=== PATIENT | male | born 1970 | race African-American/Black ===

== ENCOUNTER 2019-07-26 15:02 | Emergency (ER) | payer MEDICAID ==
[~2019-07-26] VITALS: Ht 188 cm; Wt 80.7 kg
[2019-07-26 15:10] VITALS: BP 157/71
--- NOTE | 2019-07-26 15:10 | NUR ---
ED Nurse Note: Pt brought into ED by family member for complaint of abdominal pain, nausea, vomiting since last night. Pt states pain is 8/10 and dull/constant in nature. Pt reports multiple episodes of vomiting since last night and has not been able to tolerate any oral intake. Pt denies any diarrhea. Pt is alert and oriented x4, breathing is normal and unlabored, speaking in full sentenes. Pt appears to be in mild distress secondary to pain at this time. Pt is ambulatory with steady gait. Will continue to monitor.
[2019-07-26] MEDS ORDERED: Morphine Sulfate 4mg/ml Inj (IV USE ONLY) IVP ONE (15:15)
--- NOTE | 2019-07-26 16:07 | NUR ---
ED Nurse Note: Pt sleeping comfortably at this time. Will continue to monitor.
[2019-07-26 16:11] LABS: ANION GAP 15 mmol/L (5-15); BLOOD UREA NITROGEN 20 mg/dL (7-18); CALCIUM 9.3 MG/DL (8.5-10.1); CARBON DIOXIDE 24 MMOL/L (21-32); CHLORIDE 104 MMOL/L (98-107); CREATININE 1.2 MG/DL (0.55-1.30); POTASSIUM 3.7 MMOL/L (3.5-5.1); SODIUM 143 MMOL/L (136-145)
[2019-07-26 16:12] LABS: HEMATOCRIT 43.2 % (42.0-52.0); MEAN CORPUSCULAR VOLUME 94 FL (80-99); PLATELET COUNT 230 K/UL (150-450); RED BLOOD COUNT 4.58 M/UL (4.70-6.10); RED CELL DISTRIBUTION WIDTH 12.7 % (11.6-14.8); WHITE BLOOD COUNT 12.6 K/UL (4.8-10.8)
[2019-07-26 16:15] LABS: ALANINE AMINOTRANSFERASE 30 U/L (12-78); ALBUMIN 4.4 G/DL (3.4-5.0); ALBUMIN/GLOBULIN RATIO 1.1 (1.0-2.7); ALKALINE PHOSPHATASE 86 U/L (46-116); ASPARTATE AMINO TRANSFERASE 31 U/L (15-37); BILIRUBIN,TOTAL 0.7 MG/DL (0.2-1.0)
[2019-07-26] MEDS ORDERED: ONDANSETRON ODT4 MG BC (16:55)
[2019-07-26] MEDS ORDERED: RANITIDINE HCL150 MG ORAL (16:55)
[2019-07-26 17:14] VITALS: BP 135/75
--- NOTE | 2019-07-26 17:14 | NUR ---
ER DISCHARGE NOTE: Patient is cleared to be discharged per ERMD, pt is aox4, on room air, with stable vital signs. pt was given dc and prescription instructions, pt was able to verbalize understanding, pt id band and iv site removed without complications. pt is able to ambulate with steady gait. pt took all belongings.
--- NOTE | 2019-07-26 18:36 | Emergency Room Report ---
History of Present Illness General Chief Complaint: Nausea, Vomiting, and Diarrhea Source: Patient Present Illness HPI 49-year-old male presents ED for evaluation. Complaining of abdominal pain with nausea and vomiting. Pain is epigastric, sharp, 7 out of 10, nonradiating. Started yesterday after drinking alcohol. States that he has been continuing to vomit since. States he try to use marijuana to control his nausea but it did not help. Denies drug use. Denies chest pain. Denies fevers or chills. Denies diarrhea. No other aggravating relieving factors. Denies any other associated symptoms Allergies: Coded Allergies: No Known Allergies (Unverified , 07/26/19) Patient History Past Medical History: none Past Surgical History: none Pertinent Family History: none Social History: Reports: alcohol use, drug use; Denies: smoking Immunizations: UTD Reviewed Nursing Documentation: PMH: Agreed; PSxH: Agreed Nursing Documentation-PMH Past Medical History: No Stated History Review of Systems All Other Systems: negative except mentioned in HPI Physical Exam Vital Signs Date Time Temp Pulse Resp B/P (MAP) Pulse Ox O2 Delivery O2 Flow Rate FiO2 07/26/19 15:04 97.9 88 18 157/71 (99) 99 Room Air Sp02 EP Interpretation: reviewed, normal General Appearance: no apparent distress, alert, GCS 15, non-toxic Head: normocephalic, atraumatic Eyes: bilateral eye normal inspection, bilateral eye PERRL ENT: hearing grossly normal, normal pharynx, no angioedema, normal voice Neck: full range of motion, supple/symm/no masses Respiratory: chest non-tender, lungs clear, normal breath sounds, speaking full sentences Cardiovascular #1: regular rate, rhythm, no edema Cardiovascular #2: 2+ carotid (R), 2+ carotid (L), 2+ radial (R), 2+ radial (L) , 2+ dorsalis pedis (R), 2+ dorsalis pedis (L) Gastrointestinal: normal bowel sounds, soft, non-distended, no guarding, no rebound, tenderness - epigastric Rectal: deferred Genitourinary: normal inspection, no CVA tenderness Musculoskeletal: back normal, normal range of motion, gait/station normal, non- tender Neurologic: alert, motor strength/tone normal, oriented x3, sensory intact, responsive, speech normal Psychiatric: judgement/insight normal, memory normal, mood/affect normal, no suicidal/homicidal ideation Reflexes: 3+ bicep (R), 3+ bicep (L), 3+ tricep (R), 3+ tricep (L), 3+ knee (R) , 3+ knee (L) Lymphatic: no adenopathy Medical Decision Making Diagnostic Impression: Primary Impression: Gastritis Qualified Codes: K29.20 - Alcoholic gastritis without bleeding ER Course Hospital Course 49-year-old M presents with epigastric pain with N/V differential diagnosis: gastritis, SBO, cholecystits Clinical course Patient placed on stretcher. On cardiac tech. After initial history and physical I ordered labs, IV fluids, zofran, pepcid and morphien Labs - minimal leukocytosis, no electrolyte abnormalities, LFTs normal Upon reassessment, patient states pain has improved. findings consistent with gastritis. Vitals stable. Nontoxic appearing. Tolerating p.o. intake. Will discharge to home. Does not have a PMD. I will provide referrals I feel this is a highly complex case requiring extensive working including EKG/ Rhythm strip, Xray/CT/US, Blood/urine lab work, repeat exams while in ED, and administration of strong opiates/narcotics for pain control, admission to hospital or close patient follow up. Diagnosis - gastritis Stable and discharged to home with prescriptions for Zantac, zofran. Followup with PMD. Return to ED if symptoms recur or worsen Labs Test 07/26/19 15:10 White Blood Count 12.6 K/UL (4.8-10.8) Red Blood Count 4.58 M/UL (4.70-6.10) Hemoglobin 15.0 G/DL (14.2-18.0) Hematocrit 43.2 % (42.0-52.0) Mean Corpuscular Volume 94 FL (80-99) Mean Corpuscular Hemoglobin 32.9 PG (27.0-31.0) Mean Corpuscular Hemoglobin Concent 34.8 G/DL (32.0-36.0) Red Cell Distribution Width 12.7 % (11.6-14.8) Platelet Count 230 K/UL (150-450) Mean Platelet Volume 7.9 FL (6.5-10.1) Neutrophils (%) (Auto) % (45.0-75.0) Lymphocytes (%) (Auto) % (20.0-45.0) Monocytes (%) (Auto) % (1.0-10.0) Eosinophils (%) (Auto) % (0.0-3.0) Basophils (%) (Auto) % (0.0-2.0) Sodium Level 143 MMOL/L (136-145) Potassium Level 3.7 MMOL/L (3.5-5.1) Chloride Level 104 MMOL/L (98-107) Carbon Dioxide Level 24 MMOL/L (21-32) Anion Gap 15 mmol/L (5-15) Blood Urea Nitrogen 20 mg/dL (7-18) Creatinine 1.2 MG/DL (0.55-1.30) Estimat Glomerular Filtration Rate > 60 mL/min (>60) Glucose Level 108 MG/DL (74-106) Calcium Level 9.3 MG/DL (8.5-10.1) Total Bilirubin 0.7 MG/DL (0.2-1.0) Aspartate Amino Transf (AST/SGOT) 31 U/L (15-37) Alanine Aminotransferase (ALT/SGPT) 30 U/L (12-78) Alkaline Phosphatase 86 U/L (46-116) Total Protein 8.3 G/DL (6.4-8.2) Albumin 4.4 G/DL (3.4-5.0) Globulin 3.9 g/dL Albumin/Globulin Ratio 1.1 (1.0-2.7) Lipase 51 U/L (73-393) Serum Alcohol < 3 mg/dL Last Vital Signs Date Time Temp Pulse Resp B/P (MAP) Pulse Ox O2 Delivery O2 Flow Rate FiO2 07/26/19 17:14 97.6 60 14 135/75 99 Room Air Status: improved Disposition: HOME, SELF-CARE Condition: Stable Scripts Ranitidine Hcl* (ZANTAC*) 150 Mg Tablet 150 MG ORAL TWICE A DAY, #30 TAB Prov: Buddy Briggs MD 07/26/19 Ondansetron Odt* (ZOFRAN ODT*) 4 Mg Tab.rapdis 4 MG BC EVERY 6 HOURS PRN for Nausea & Vomiting, #20 TAB 0 Refills Prov: Buddy Briggs MD 07/26/19 Referrals: NON PHYSICIAN (PCP) Jose Donohue [facility] Patient Instructions: Gastritis, Adult, [id number] Buddy Briggs MD Jul 26, 2019 18:36
== END 2019-07-26 17:14 | disposition home or self-care (01) ==
LOC: EMR 15:20
DX: K29.20 Alcoholic gastritis without bleeding (principal); D72.829 Elevated white blood cell count, unspecified
CPT/HCPCS: 36415; 80053; 83690; 85007; 85025; 96361; 96374; 96375; G0480; J2270; J2405; J7030; S0028; Z7502; 99284

== ENCOUNTER 2019-07-26 17:52 | Emergency (ER) | payer MEDICAID ==
[~2019-07-26] VITALS: Ht 188 cm; Wt 79.4 kg
[~2019-07-26 17:52] MED LIST: ONDANSETRON ODT4 MG BC; RANITIDINE HCL150 MG ORAL
[2019-07-26] MEDS ORDERED: Ketorolac 30mg Inj IV ONE (18:15)
[2019-07-26] MEDS ORDERED: Pantoprazole Inj IV ONE (18:15)
[2019-07-26 18:25] VITALS: BP 145/72
--- NOTE | 2019-07-26 18:25 | NUR ---
ER Nurse Note: Pt walked in after being discharge from [facility] ER for gastritis on 07/26. Pt stated he has abd pain with n/v. Pt was waiting in the waiting room and vomited; and pt decided to check in again. Pt ambulatory, a&ox4, VSS, no signs of distress. Pt did not vomit at bedside. Bowel sounds heard in all quadrants. ERMD at pt side; will continue to monitor.
--- NOTE | 2019-07-26 18:40 | NUR ---
ER Nurse Note: All orders completed per ERMD orders. IV established with NS infusing. Friend at bedside. All safety measures met; will endorse to oncoming shift for continutiy of care.
--- NOTE | 2019-07-26 19:25 | NUR ---
ED Nurse Note: pt care endorsed by JARROD Chen. pt is lying in bed sleeping with fluids running. he does not appear to be in any distress at this time, breathing is even and unlabored. will continue to monitor pt
--- NOTE | 2019-07-26 19:55 | NUR ---
ED Nurse Note: pt was given 100 mL of water PO, will continue to monitor pt
--- NOTE | 2019-07-26 20:10 | NUR ---
ED Nurse Note: pt was able to tolerate PO water without vomiting. ERMD is at pt bedside
[2019-07-26 20:40] VITALS: BP 147/77
--- NOTE | 2019-07-26 20:40 | NUR ---
ER DISCHARGE NOTE: Patient is cleared to be discharged per ERMD, pt is aox4, on room air, with stable vital signs. pt was given dc instructions, pt was able to verbalize understanding, pt id band and iv site removed without complications. pt is able to ambulate with steady gait. pt took all belongings.
[2019-07-26 20:50] VITALS: BP 140/69
--- NOTE | 2019-07-26 21:29 | Emergency Room Report ---
History of Present Illness General Chief Complaint: Abdominal Pain Source: Patient Present Illness HPI 41-year-old male presents the ED for evaluation. Complaining of abdominal pain with nausea and vomiting. Was just seen here in ED and subsequently discharged. Treated for gastritis. States he was feeling better upon discharge and states that when he was in the waiting room he felt nauseous with some pain. Pain is cramping, 7 out of 10, nonradiating. Denies any vomiting. Denies any diarrhea. No other aggravating relieving factors. Denies any other associated symptoms Allergies: Coded Allergies: No Known Allergies (Unverified , 07/26/19) Patient History Past Medical History: none Past Surgical History: none Pertinent Family History: none Social History: Denies: smoking, alcohol use, drug use Immunizations: UTD Reviewed Nursing Documentation: PMH: Agreed; PSxH: Agreed Nursing Documentation-PMH Past Medical History: No Stated History Review of Systems All Other Systems: negative except mentioned in HPI Physical Exam Vital Signs Date Time Temp Pulse Resp B/P (MAP) Pulse Ox O2 Delivery O2 Flow Rate FiO2 07/26/19 17:54 98.1 61 22 145/72 (96) 99 Room Air Sp02 EP Interpretation: reviewed, normal General Appearance: no apparent distress, alert, GCS 15, non-toxic Head: normocephalic, atraumatic Eyes: bilateral eye normal inspection, bilateral eye PERRL ENT: hearing grossly normal, normal pharynx, no angioedema, normal voice Neck: full range of motion, supple/symm/no masses Respiratory: chest non-tender, lungs clear, normal breath sounds, speaking full sentences Cardiovascular #1: regular rate, rhythm, no edema Cardiovascular #2: 2+ carotid (R), 2+ carotid (L), 2+ radial (R), 2+ radial (L) , 2+ dorsalis pedis (R), 2+ dorsalis pedis (L) Gastrointestinal: normal bowel sounds, soft, non-distended, no guarding, no rebound, rebound Rectal: deferred Genitourinary: normal inspection, no CVA tenderness Musculoskeletal: back normal, normal range of motion, gait/station normal, non- tender Neurologic: alert, motor strength/tone normal, oriented x3, sensory intact, responsive, speech normal Psychiatric: judgement/insight normal, memory normal, mood/affect normal, no suicidal/homicidal ideation Reflexes: 3+ bicep (R), 3+ bicep (L), 3+ tricep (R), 3+ tricep (L), 3+ knee (R) , 3+ knee (L) Skin: no rash Lymphatic: no adenopathy Medical Decision Making Diagnostic Impression: Primary Impression: Gastritis Qualified Codes: K29.20 - Alcoholic gastritis without bleeding ER Course Hospital Course 49 yo M presents with abd pain and vomiting. seen here for gastritis. differential diagnosis: gastritis, SBO, cholecystits Clinical course Patient placed on stretcher. On pvc monitor. After initial history and physical I ordered IVFs, protonix, zofran I saw patient earlier today. Nonfocal exam. No guarding or rebound. Labs unremarkable. Consistent with alcoholic gastritis. I see no reason to repeat labs or imaging at this time. Upon reassessment, patient states pain has improved. we will discharge to home I feel this is a highly complex case requiring extensive working including EKG/ Rhythm strip, Xray/CT/US, Blood/urine lab work, repeat exams while in ED, and administration of strong opiates/narcotics for pain control, admission to hospital or close patient follow up. Diagnosis - gastritis Stable and discharged to home. Followup with PMD. Return to ED if symptoms recur or worsen Last Vital Signs Date Time Temp Pulse Resp B/P (MAP) Pulse Ox O2 Delivery O2 Flow Rate FiO2 07/26/19 18:43 98.0 07/26/19 18:25 61 22 Room Air 07/26/19 18:25 145/72 99 Status: improved Disposition: HOME, SELF-CARE Condition: Stable Referrals: OLIVIA MCCULLOUGH,REFERRING (PCP) Jose Loomis [facility] Patient Instructions: Gastritis, Adult, [id number] Additional Instructions: take the medications prescribed to you earlier today. followup with your PMD Buddy Briggs MD Jul 26, 2019 21:29
== END 2019-07-26 20:40 | disposition home or self-care (01) ==
LOC: EMR 18:32
DX: K29.20 Alcoholic gastritis without bleeding (principal)
CPT/HCPCS: 96361; 96374; 96375; J1885; J2405; J7030; S0164; Z7502; 99284